=== PATIENT | female | born 1965 | race Caucasian/White ===

== ENCOUNTER → 2016-12-03 | Day surgery (SDC) | payer OTHER ==
[~2016-12-03] VITALS: Ht 162.6 cm; Wt 77.1 kg
--- NOTE | 2016-12-10 14:11 | Operative Report ---
Operative/Inv Procedure Report Surgery Date: 12/03/16 Name of Procedure: Right vulvar biopsy Pre-Operative Diagnosis: Vulvar lesion Post-Operative Diagnosis: Same Estimated Blood Loss: 50ml to 100ml Surgeon/Armament Mechanic: MARICRUZ CHOI MD Anesthesia: moderate sedation Operative/Procedure Note Note: Procedure note patient was taken the operating room placed supine position after adequate anesthesia patient placed in dorsolithotomy position the vagina from dorsal fashion at this point Marcaine with epinephrine was placed underneath the on 1 cm on vulvar lesion the skin was cut using a knife on the mass was excised using a needle-tipped Bovie approximately a 4 cm waswas reapproximated using 30 the skin was reapproximated using 30 on at the end of the case the skin was hemostatic oral instrument counts were correct the patient was awakened from anesthesia and transferred recovery room awake and alert with counts correct .
== END ==
LOC: STS 01:49
DX: D28.0 Benign neoplasm of vulva (principal)
CPT/HCPCS: 88305; J1580; J2250